=== PATIENT | female | born 1955 | race Caucasian/White ===

== ENCOUNTER 2017-11-09 04:54 | Emergency (ER) | payer OTHER ==
[~2017-11-09] VITALS: Ht 152.4 cm; Wt 47.3 kg
[~2017-11-09 04:54] MED LIST: CARAFATE100 MG/ML PO; CLARITIN,ALAVAR10 MG PO; RANITIDINE HCL150 MG PO; VITAMIN D2000 UNI1 PO; ZOFRAN4 MG PO
[2017-11-09 06:20] VITALS: BP 158/86
== END 2017-11-09 06:20 | disposition home or self-care (01) ==
LOC: EME 04:54
DX: S60.444A External constriction of right ring finger, initial encounter (principal); W49.04XA Ring or other jewelry causing external constriction, initial encounter
CPT/HCPCS: 99281; 99283